=== PATIENT | female | born 2005 | race Caucasian/White ===

== ENCOUNTER 2024-01-25 09:34 | Emergency (ER) | payer BC, OTHER ==
[2024-01-25] MEDS ORDERED: Sodium Chloride 0.9% 10 ML Syringe FLUSH PRN (10:07)
[2024-01-25] MEDS ORDERED: Naloxone 0.4 MG/ML SDV IVPUSH PRN ×2 (10:27→12:01)
[2024-01-25] MEDS: Morphine 4 MG/ML Syringe IVPUSH ONE (10:49)
[2024-01-25] MEDS: Sodium Chloride 0.9% 1,000 ML IV SCH (10:52)
[2024-01-25] MEDS: Ondansetron 4 MG/2 ML SDV IVPUSH ONE (10:56)
[2024-01-25 11:00] LABS: BASOPHILS ABSOLUTE AUTO 0.1 K/mm3 (0.0-0.2); BASOPHILS PERCENT AUTO 0.2 % (0.0-1.0); HEMATOCRIT 45.9 % (37.0-47.0); HEMOGLOBIN 15.6 gm/dl (12.0-16.0); IMMATURE GRAN ABSOLUTE AUTO 0.07 K/mm3 (0.00-0.05); IMMATURE GRAN PERCENT AUTO 0.3 % (0.0-0.4); LYMPHOCYTES ABSOLUTE AUTO 1.4 K/mm3 (1.0-4.8); LYMPHOCYTES PERCENT AUTO 6.8 % (24.0-44.0); MEAN CORPUSCULAR HEMOGLOBIN 29.8 pg (28.0-32.0); MEAN CORPUSCULAR VOLUME 87.6 fl (83.0-99.0); MEAN PLATELET VOLUME 8.9 fl (9.4-12.3); MONOCYTES ABSOLUTE AUTO 0.7 K/mm3 (0.0-0.8); MONOCYTES PERCENT AUTO 3.4 % (0.0-8.0); NEUTROPHILS ABSOLUTE AUTO 17.8 K/mm3 (1.8-7.7); NEUTROPHILS PERCENT AUTO 89.3 % (41.0-71.0); PLATELET COUNT,PLT 328 K/mm3 (150-400); RED BLOOD CELL COUNT 5.24 M/mm3 (4.10-5.30); WHITE BLOOD CELL COUNT,WBC 20.02 K/mm3 (3.9-11.3)
[2024-01-25 11:22] LABS: A/G RATIO 1.1 (1-2); ALBUMIN 3.9 g/dl (3.4-5.0); ANION GAP 16.2 (5-15); BILIRUBIN TOTAL 0.7 mg/dL (0.2-1.0); CALCIUM 9.8 mg/dL (8.5-10.1); EST CRCL DRUG DOSING (CG) 74.23 mL/min; POTASSIUM,K 4.2 mEq/L (3.5-5.1); PROTEIN TOTAL,TP 7.6 g/dl (6.4-8.2)
[2024-01-25] MEDS: Iopamidol 612 MG/ML 100 ML Bottle IVPUSH ONE (12:29)
[2024-01-25] MEDS: Sodium Chloride 0.9% 10 ML Syringe FLUSH PRN (12:34)
[2024-01-25] MEDS: HYDROmorphone 0.5 MG/0.5 ML Syringe IVPUSH ONE (12:36)
[2024-01-25 12:56] LABS: APPEARANCE,URINE SLT CLOUDY (Clear); BILIRUBIN,URINE NEGATIVE (Negative); COLOR,URINE YELLOW (Yellow); GLUCOSE,URINE NEGATIVE (Negative); KETONES,URINE NEGATIVE (Negative); LEUKOCYTE ESTERASE,URINE NEGATIVE (Negative); NITRITE,URINE NEGATIVE (Negative); OCCULT BLOOD,URINE NEGATIVE (Negative); PROTEIN,URINE NEGATIVE (Negative); UROBILINOGEN,URINE 0.2 (0.2-1.0)
[2024-01-25] MEDS: Ketorolac 30 MG/ML SDV IVPUSH ONE (15:30)
[2024-01-25] MEDS: Acetaminophen/oxyCODONE 325-5 MG Tab PO ONE (15:30)
== END 2024-01-25 16:10 | disposition home or self-care (01) ==
LOC: JD.ED 09:34
DX: R10.13 Epigastric pain (principal); F17.210 Nicotine dependence, cigarettes, uncomplicated; Z88.0 Allergy status to penicillin; Z79.899 Other long term (current) drug therapy
CPT/HCPCS: 36415; 74177; 80053; 81003; 83690; 84703; 85025; 96361; 96374; 96375; 99284; A9270; J1170; J1885; J2270; J2405; J3490; J7030; Q9967